=== PATIENT | male | born 1980 | race African-American/Black ===

== ENCOUNTER 2020-04-29 22:39 | Emergency (ER) | payer SELFPAY ==
[~2020-04-29] VITALS: Ht 172.7 cm; Wt 63.6 kg
--- NOTE | 2020-04-29 22:48 | PHYS DOC ---
General Adult HPI: HPI: The history was obtained from the EMS and patient. Patient is a 39-year-old male with unknown PMH who presents with a chief complaint of altered mental status. EMS states they were called by police due to the patient wandering on the streets. They reported that the patient was knocking on multiple individuals doors. Patient denies any drug or alcohol use to me. He is quite delayed in his responses and movements. GCS 14. He denies any physical complaints. Minimal history at this time secondary to the patient's delayed mentation. Review of Systems: Review of Systems: Review of systems unable to be obtained secondary to altered mental status Heart Score: Risk Factors: Risk Factors: DM, Current or recent (<one month) smoker, HTN, HLP, family h istory of CAD, obesity. Risk Scores: Score 0 - 3: 2.5% MACE over next 6 weeks - Discharge Home Score 4 - 6: 20.3% MACE over next 6 weeks - Admit for Clinical Observation Score 7 - 10: 72.7% MACE over next 6 weeks - Early Invasive Strategies Physical Exam: PE: Constitutional: Well developed, well nourished, no acute distress, non-toxic appearance. [] HENT: Normocephalic, atraumatic, bilateral external ears normal, oropharynx moist, no oral exudates, nose normal. [] Eyes: PERRLA, EOMI, conjunctiva normal, no discharge. [] Neck: Normal range of motion, no tenderness, supple, no stridor. [] Cardiovascular:Heart rate regular rhythm, no murmur [] Lungs & Thorax: Bilateral breath sounds clear to auscultation [] Abdomen: soft, no tenderness, no masses, no pulsatile masses. [] Skin: Warm, dry, no erythema, no rash. [] Back: No tenderness, no CVA tenderness. [] Extremities: No tenderness, no cyanosis, no clubbing, ROM intact, no edema. [] Neurologic: Alert with intact cognitive function. No aphasia, dysarthria, or neglect. GCS 14 [id number]. Pupils 3 mm briskly reactive b/l. Bilateral nystagmus noted. No APD present. Cranial nerves 2-12 grossly intact; no facial asymmetry present, tongue midline, shoulder shrugging strength intact. Strength 5/5 and symmetric throughout. Light touch sensation intact throughout. Cerebellar testing appropriate without evidence of dysdiadochokinesia. DTR's 2+ in all 4 extremities. Negative pronator drift bilaterally. Gait slow Psychologic: Flat affect. Delayed responses. Current Patient Data: Labs: Laboratory Tests Test 04/29/20 23:25 04/29/20 23:30 Urine Opiates Screen Neg Urine Methadone Screen Neg Urine Barbiturates Neg Urine Phencyclidine Screen Pos Urine Amphetamine/Methamphetamine Neg Urine Benzodiazepines Screen Neg Urine Cocaine Screen Neg Urine Cannabinoids Screen Pos Urine Ethyl Alcohol Neg White Blood Count 7.3 x10^3/uL Red Blood Count 4.85 x10^6/uL Hemoglobin 15.5 g/dL Hematocrit 45.7 % Mean Corpuscular Volume 94 fL Mean Corpuscular Hemoglobin 32 pg Mean Corpuscular Hemoglobin Concent 34 g/dL Red Cell Distribution Width 13.1 % Platelet Count 259 x10^3/uL Neutrophils (%) (Auto) 79 % Lymphocytes (%) (Auto) 13 % Monocytes (%) (Auto) 8 % Eosinophils (%) (Auto) 0 % Basophils (%) (Auto) 1 % Neutrophils # (Auto) 5.7 x10^3/uL Lymphocytes # (Auto) 0.9 x10^3/uL Monocytes # (Auto) 0.6 x10^3/uL Eosinophils # (Auto) 0.0 x10^3/uL Basophils # (Auto) 0.0 x10^3/uL Sodium Level 140 mmol/L Potassium Level 3.6 mmol/L Chloride Level 104 mmol/L Carbon Dioxide Level 26 mmol/L Anion Gap 10 Blood Urea Nitrogen 7 mg/dL Creatinine 1.0 mg/dL Estimated GFR (Cockcroft-Gault) 100.1 BUN/Creatinine Ratio 7 Glucose Level 104 mg/dL Calcium Level 9.1 mg/dL Total Bilirubin 0.3 mg/dL Aspartate Amino Transf (AST/SGOT) 39 U/L Alanine Aminotransferase (ALT/SGPT) 59 U/L Alkaline Phosphatase 45 U/L Creatine Kinase 597 U/L Troponin I Quantitative < 0.017 ng/mL Total Protein 8.0 g/dL Albumin 4.3 g/dL Albumin/Globulin Ratio 1.2 Lipase 109 U/L Salicylates Level 5.3 mg/dL Salicylate Last Dose Date Salicylate Last Dose Time Acetaminophen Level < 2 mcg/ml Acetaminophen Last Dose Date Acetaminophen Last Dose Time Ethyl Alcohol Level < 10 mg/dL Vital Signs: Vital Signs Date Time Temp Pulse Resp B/P (MAP) Pulse Ox O2 Delivery O2 Flow Rate FiO2 04/29/20 22:39 98.3 86 16 140/90 (107) 97 Room Air 98.3 EKG: EKG: [] EKG consistent with normal sinus rhythm. Ventricular rate of 76 bpm. [place] normal. Intervals normal. Benign early repolarization noted. No acute ST segment elevation appreciated. Radiology/Procedures: Radiology/Procedures: [facility] [address] [place] [address] IMAGING REPORT Signed PATIENT: MATTHEW PHILLIPS ACCOUNT: [id number] : 1980 LOCATION: ER AGE: 39 SEX: M EXAM STATUS: REG ER ORD. PHYSICIAN: OBEY ARREDONDO DO REASON: AMS PROCEDURE: CT HEAD WO CONTRAST EXAM: CT head without contrast INDICATION: Altered mental status COMPARISON: None available TECHNIQUE: Axial CT imaging through the head without intravenous contrast. One or more of the following individualized dose reduction techniques were utilized for this examination: 1. Automated exposure control 2. Adjustment of the mA and/or kV according to patient size 3. Use of iterative reconstruction technique. FINDINGS: The ventricles and sulci are normal. Fleming-white matter differentiation is maintained. There is no intracranial hemorrhage, acute infarct, or mass lesion. Basal cisterns are clear. The skull and scalp are intact. Paranasal sinuses and mastoid air cells are clear. Globes and orbits are intact. IMPRESSION: No acute intracranial abnormality. Electronically signed by: Klaudia Castellano MD (04/30/2020 12:26 AM) [id number] DICTATED and SIGNED BY: KLAUDIA CASTELLANO MD DATE: 04/30/20 0026 [] Course & Med Decision Making: Course & Med Decision Making Pertinent Labs and Imaging studies reviewed. (See chart for details) [] Patient is a 39-year-old male who presents via EMS for altered mental status and being found wandering outside. On initial examination patient is a GCS of 14. He is confused to time. No focal neurologic deficits or signs of trauma appreciated. Broad-spectrum work-up was obtained. Urinalysis is positive for PCP. CT imaging of the head nonacute. EKG grossly unremarkable. He does have mild elevation of his CK however I do not feel this likely constitutes rhabdomyolysis requiring IV fluids. He is tolerating p.o. Patient was monitored in the emergency department. On repeat examination he is now alert and oriented x3. He is a GCS of 15. He does report ingesting PCP prior to arrival. He states he is not ingesting this in an attempt to harm himself. This time he does appear clinically sober. He has ambulated in the emergency department without assistance. He has tolerated p.o. Overall I do feel the patient is appropriate for discharge home. Return precautions were discussed and understood. He was counseled on PCP cessation. Instructed to follow-up with his primary care physician in the next 2 to 3 days. Stable for discharge home. Dragon Disclaimer: Draggem Disclaimer: This electronic medical record was generated, in whole or in part, using a voice recognition dictation system. Departure Departure Impression: Primary Impression: PCP intoxication Qualified Codes: F16.929 - Hallucinogen use, unspecified with intoxication, unspecified Disposition: 01 HOME, SELF-CARE Condition: STABLE Patient Instructions: Sorbitol oromucosal solution for saliva substitute Additional Instructions: [facility] [address] [place] [address] [facility] [address] [place] [address] [facility] [address] [facility] [place] [address] [facility] [address] [place] [address] [facility] [address] [place] [address] [facility] [address] [place] [address] [facility] [place] [address] [facility] [address] [place] [address] [facility] [address] [place] [address] [facility] [address] [place] [address] Please follow-up with your primary care physician in the next 2 to 3 days. OBEY ARREDONDO DO Apr 29, 2020 22:48
[2020-04-29 23:49] LABS: BASO % 1 % (0-3); EOS % 0 % (0-3); HEMATOCRIT 45.7 % (39.0-53.0); HEMOGLOBIN 15.5 g/dL (13.0-17.5); LYMPH # 0.9 x10^3/uL (1.0-4.8); LYMPH % 13 % (24-48); MEAN CORPUSCULAR HEMOGLOBIN 32 pg (25-35); MEAN CORPUSCULAR HGB CONC 34 g/dL (31-37); MEAN CORPUSCULAR VOLUME 94 fL (79-100); MONO # 0.6 x10^3/uL (0.0-1.1); MONO % 8 % (0-9); NEUT # 5.7 x10^3/uL (1.8-7.7); NEUT % 79 % (31-73); PLATELET COUNT 259 x10^3/uL (140-400); RED BLOOD COUNT 4.85 x10^6/uL (4.30-5.70); RED CELL DISTRIBUTION WIDTH 13.1 % (11.5-14.5); WHITE BLOOD COUNT 7.3 x10^3/uL (4.0-11.0)
[2020-04-29 23:57] LABS: CALCIUM 9.1 mg/dL (8.5-10.1); GFR 100.1; POTASSIUM 3.6 mmol/L (3.5-5.1)
[2020-04-30 00:03] LABS: ALBUMIN 4.3 g/dL (3.4-5.0); ALBUMIN/GLOBULIN RATIO 1.2 (1.0-1.7); TOTAL BILIRUBIN 0.3 mg/dL (0.2-1.0)
[2020-04-30 00:05] LABS: ACETAMIN < 2 mcg/ml (10-30); ETHANOL < 10 mg/dL (0-10); SALIC 5.3 mg/dL (2.8-20.0)
[2020-04-30 00:15] LABS: BARBITURATES NEG (NEG); BENZODIAZEPINES NEG (NEG); CANNABINOIDS POS (NEG); COCAINE NEG (NEG); METHADONE NEG (NEG); OPIATES NEG (NEG); PHENCYCLIDINE POS (NEG)
[2020-04-30 00:17] LABS: AMPHETAMINE/METHAMPHETAMINE NEG (NEG)
--- NOTE | 2020-04-30 00:29 | RAD ---
EXAM: CT head without contrast INDICATION: Altered mental status COMPARISON: None available TECHNIQUE: Axial CT imaging through the head without intravenous contrast. One or more of the following individualized dose reduction techniques were utilized for this examination: 1. Automated exposure control 2. Adjustment of the mA and/or kV according to patient size 3. Use of iterative reconstruction technique. FINDINGS: The ventricles and sulci are normal. Fleming-white matter differentiation is maintained. There is no intracranial hemorrhage, acute infarct, or mass lesion. Basal cisterns are clear. The skull and scalp are intact. Paranasal sinuses and mastoid air cells are clear. Globes and orbits are intact. IMPRESSION: No acute intracranial abnormality. Electronically signed by: Klaudia Castellano MD (04/30/2020 12:26 AM) [id number]
[2020-04-30 00:57] VITALS: BP 163/76
--- NOTE | 2020-04-30 01:44 | RAD ---
Chest AP portable at 2324: Reason for examination: Altered mental status. The heart size is normal. Mediastinum is unremarkable. Lung rowe are clear. No acute bony abnormalities are seen. Impression: No acute cardiopulmonary disease. Electronically signed by: Mona Busch MD (04/30/2020 1:41 AM) BALBINA
--- NOTE | 2020-04-30 15:49 | EKG ---
[facility] [address] [place] [address] Test Date: 2020-04-29 Test Time: 23:16:18 Pat Name: KATALINA PHILLIPS Department: Room: Gender: M Veneer Marker: : 1980 Requested By: OBEY ARREDONDO Order Number: [id number] Reading MD: Measurements Intervals [place] Rate: 76 P: 36 [place]: 158 QRS: 45 QRSD: 106 T: 50 QT: 400 QTc: 455 Interpretive Statements SINUS RHYTHM QRS(T) CONTOUR ABNORMALITY CONSIDER ANTEROLATERAL MYOCARDIAL DAMAGE ST & T ABNORMALITY, CONSIDER RECENT INFERIOR MYOCARDIAL OR PERICARDIAL DAMAGE ABNORMAL ECG RI6.01 No previous ECG available for comparison
== END 2020-04-30 01:34 | disposition home or self-care (01) ==
LOC: ER 22:39 → MERGE 22:39 → ER 04-30 01:34
DX: R41.82 Altered mental status, unspecified (principal); T40.995A Adverse effect of other psychodysleptics [hallucinogens], initial encounter; Y92.89 Other specified places as the place of occurrence of the external cause
CPT/HCPCS: 36415; 70450; 71045; 80053; 80307; 80329; 82550; 83690; 84484; 85025; 93005; 99285; G0480